=== PATIENT | female | born 1995 | race Caucasian/White ===

== ENCOUNTER 2016-08-11 15:00 | Emergency (ER) ==
[2016-08-11 15:06] VITALS: BP 122/83; TEMP 97.9; BMI 25.7
--- NOTE | 2016-08-11 15:13 | ED.PDOC ---
General ED Provider: Dr. MAJO BAUTISTA JR Chief Complaint: Urinary Problem Stated Complaint: 20yo with dysuria burning,n fever voiding often, decr amounts [ End ]2 days 97.9 99 20 98% 122/83 3/10 Time Seen by Physician: 15:13 Mode of Arrival: Walk-In Information Source: Patient Exam Limitations: No limitations Nursing and Triage Documentation Reviewed and Agree: No Review of Systems - Review Of Systems Constitutional: Reports: No symptoms Eyes: Reports: No symptoms Ears, Nose, Mouth, Throat: Reports: No symptoms Respiratory: Reports: No symptoms Cardiac: Reports: No symptoms GI: Reports: No symptoms : Reports: Burning, Dysuria, Pain Musculoskeletal: Reports: No symptoms Skin: Reports: No symptoms Neurological: Reports: No symptoms Endocrine: Reports: No symptoms Hematologic/Lymphatic: Reports: No symptoms All Other Systems: Other Past Medical History - Past Medical History Endocrine: Reports: None Cardiovascular: Reports: None Respiratory: Reports: None Hematological: Reports: None Gastrointestinal: Reports: None Genitourinary: Reports: None, Kidney stones (02/07/16 right ureteral stone(old record)) Neuro/Psych: Reports: None Musculoskeletal: Reports: None, Other (mild spina bifida per patient legs work [email or web address]) Cancer: Reports: None Last Menstrual Period: now Other Pertinent Past Medical History: strep four times a year - Surgical History General Surgical History: Reports: None - Family History Family History: Reports: None - Social History Smoking Status: Current every day smoker, Light tobacco smoker Hx Substance Use: No Alcohol Screening: None - Immunizations Tetanus Shot up to Date: Yes Physical Exam - Physical Exam Appearance: Well-appearing, Thin Ill-appearing: Mild Pain Distress: Mild Eyes: MANE, EOMI, Conjunctiva clear ENT: Ears normal (congested but mobile), Nose normal, Oropharynx normal Neck: Supple Respiratory: Airway patent, Breath sounds clear, Breath sounds equal, Respirations nonlabored Cardiovascular: RRR, Pulses normal, No rub, No murmur GI/: Soft, Nontender, No masses, Bowel sounds normal, No Organomegaly Musculoskeletal: Normal strength, ROM intact, No edema, No calf tenderness Skin: Warm, Dry, Normal color Neurological: Sensation intact, Motor intact, Reflexes intact, Cranial nerves intact, Alert, Oriented Psychiatric: Affect appropriate, Mood appropriate Critical Care Note - Critical Care Note Total Time (mins): 0 Course - Course Orders, Labs, Meds: Lab Review 08/11/16 15:15 Urine Color Yellow Urine Clarity Clear Urine pH 6.0 Ur Specific Murdock 1.025 Urine Protein Negative Urine Glucose (UA) Negative Urine Ketones Negative Urine Blood 2+ Urine Nitrite Negative Urine Bilirubin Negative Urine Urobilinogen 0.2 Ur Leukocyte Esterase Negative Urine Microscopic RBC 5-10 Ur Squamous Epith Cells 2-5 Urine Mucus 1+ Orders Category Date Time Status STREP SCREEN Stat LAB 08/11/16 15:25 Completed UA [URINALYSIS C & S IF INDICATED] Stat LAB 08/11/16 15:15 Completed Vital Signs: Temp Pulse Resp BP Pulse Ox 08/11/16 15:02 97.9 F 99 H 20 122/83 98 Departure - Departure Time of Disposition: 16:13 Disposition: HOME SELF-CARE Discharge Problem: Urinary symptoms, Hematuria, Strep pharyngitis Instructions: Hematuria (ED), Strep Throat (ED) Condition: Good Pt referred to PMD for follow-up: Yes Additional Instructions: recheck urine in two weeks increase fluids no infection seen on urinalysis with history of strep may need ENT consult [facility] may be able to give a referral to Dr Laughlin may see any ENT for evaluations may use cough medication such as Robitussin DM and throat medication such as chloraseptic spray for soreness antibiotics until gone recheck urine PMD two weeks Prescriptions: Cephalexin [Keflex] 500 mg PO QID #40 capsule Allergies/Adverse Reactions: Allergies No Known Allergies Allergy (Verified 08/11/16 15:07) Home Medications: Ambulatory Orders Cephalexin [Keflex] 500 mg PO QID #40 capsule 08/11/16
[2016-08-11 15:28] LABS: BILIRUBIN,URINE Negative (NEGATIVE); KETONES,URINE Negative (NEGATIVE); LEUKOCYTE ESTERASE ,URINE Negative (NEGATIVE); NITRITE,URINE Negative (NEGATIVE); PROTEIN,URINE Negative (NEGATIVE); URINE, BLOOD 2+ (NEGATIVE)
[2016-08-11 15:38] LABS: ADD URINE MICROSCOPIC YES
== END 2016-08-11 16:44 | disposition home or self-care (01) ==
LOC: ED 15:00
DX: J02.0 Streptococcal pharyngitis (principal); R31.9 Hematuria, unspecified; R30.0 Dysuria; F17.210 Nicotine dependence, cigarettes, uncomplicated; Z87.442 Personal history of urinary calculi
CPT/HCPCS: 81001; 87880; 99283

== ENCOUNTER 2017-05-09 18:07 | Emergency (ER) ==
[2017-05-09 18:07] VITALS: BMI 25.7
[2017-05-09 18:11] VITALS: BP 136/77; TEMP 99.1
--- NOTE | 2017-05-09 18:43 | ED.PDOC ---
General ED Provider: Dr. SONALI SMITH-ER Chief Complaint: Non-specific Complaint Stated Complaint: i want a blood test Time Seen by Physician: 18:15 Mode of Arrival: Walk-In Information Source: Patient, Family Exam Limitations: No limitations Primary Care Provider: YESSI CHING Nursing and Triage Documentation Reviewed and Agree: Yes Reviewed sepsis parameters & appropriate labs ordered?: Yes System Inflammatory Response Syndrome: Not Applicable Sepsis Protocol: For patient's 13 years and over: Temp is 96.8 and below OR 101 and greater Pulse >90 BPM Resp >20/minute Acutely Altered Mental Status Are patient's symptoms suggestive of a new infection, such as: -Pneumonia -Skin, Soft Tissue -Endocarditis -UTI -Bone, Joint Infection -Implantable Device -Acute Abdominal Infection -Wound Infection -Meningitis -Blood Stream Catheter Infection -Unknown SYRUPER Complaint Exam - Labor/Delivery Complaint/Exam Onset/Duration: unknown Symptoms Are: Resolved (no symptoms) Contractions Regular: No Location: Denies: Low Abdomen, Mid Abdomen, Pelvis, Back Character: Denies: Sharp, Constant Associated Signs and Symptoms: Denies: Vomiting, Diarrhea, Fever, Meconium, Gestational Hypertension, Gestational Diabetes, Pre-Eclampsia Vaginal Bleeding: None Patient Rh Status: Unknown Prior History: Reports: None Related Surgical History: None Differential Diagnoses: Other Review of Systems - Review Of Systems Constitutional: Reports: No symptoms Eyes: Reports: No symptoms Ears, Nose, Mouth, Throat: Reports: No symptoms Respiratory: Reports: No symptoms Cardiac: Reports: No symptoms GI: Reports: No symptoms : Reports: No symptoms Musculoskeletal: Reports: No symptoms Skin: Reports: No symptoms Neurological: Reports: No symptoms Endocrine: Reports: No symptoms Hematologic/Lymphatic: Reports: No symptoms All Other Systems: Reviewed and Negative Past Medical History - Past Medical History Previously Healthy: Yes Endocrine: Reports: None Cardiovascular: Reports: None Respiratory: Reports: None Hematological: Reports: None Gastrointestinal: Reports: None Genitourinary: Reports: None, Kidney stones (02/07/16 right ureteral stone(old record)) Neuro/Psych: Reports: None Musculoskeletal: Reports: None, Other (mild spina bifida per patient legs work [employer]) Cancer: Reports: None Last Menstrual Period: last month Other Pertinent Past Medical History: strep four times a year - Surgical History General Surgical History: Reports: None - Family History Family History: Reports: None - Social History Smoking Status: Current every day smoker, Heavy tobacco smoker Hx Substance Use: No Alcohol Screening: None Lives: With family Physical Exam - Physical Exam Appearance: Well-appearing, No pain distress, Well-nourished Eyes: MANE, EOMI, Conjunctiva clear ENT: Ears normal, Nose normal, Oropharynx normal Neck: Supple Respiratory: Airway patent, Breath sounds clear, Breath sounds equal, Respirations nonlabored Cardiovascular: RRR, Pulses normal, No rub, No murmur GI/: Soft, Nontender, No masses, Bowel sounds normal, No Organomegaly Musculoskeletal: Normal strength, ROM intact, No edema, No calf tenderness Skin: Warm Neurological: Sensation intact, Motor intact, Reflexes intact, Cranial nerves intact, Alert, Oriented Psychiatric: Affect appropriate, Mood appropriate Critical Care Note - Critical Care Note Total Time (mins): 0 Course - Course Orders, Labs, Meds: Lab Review 05/09/17 18:20 Serum , Qual Positive Orders Category Date Time Status SERUM Stat LAB 05/09/17 18:20 Completed Vital Signs: Temp Pulse Resp BP Pulse Ox 05/09/17 18:07 99.1 F 106 H 20 136/77 99 Departure - Departure Time of Disposition: 18:42 Disposition: HOME SELF-CARE Discharge Problem: Positive blood test Instructions: (ED) Condition: Good Pt referred to PMD for follow-up: Yes Additional Instructions: f/u with ob--if any pelvic pain or bleeding seek care immediately Allergies/Adverse Reactions: Allergies No Known Allergies Allergy (Verified 05/09/17 18:12) Home Medications: Ambulatory Orders 1 [No Reported Medications] 05/09/17 Disposition Discussed With: Patient, Family
== END 2017-05-09 18:46 | disposition home or self-care (01) ==
LOC: ED 18:07
DX: Z32.01 Encounter for pregnancy test, result positive (principal); F17.210 Nicotine dependence, cigarettes, uncomplicated
CPT/HCPCS: 36415; 84703; 99282

== ENCOUNTER 2017-07-24 18:09 | Emergency (ER) ==
[2017-07-24 18:14] VITALS: BP 144/81; TEMP 98.7; BMI 28.7
--- NOTE | 2017-07-24 18:26 | ED.PDOC ---
General ED Provider: Dr. 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 Has sore throat and congestion, runny nose and cough. Exposed to patients with pneumonia and concerned she could get ill. Is 16 weeks . Denies nausea or vomiting Time Seen by Physician: 18:15 Mode of Arrival: Walk-In Information Source: Patient Exam Limitations: No limitations Primary Care Provider: DANISHA ZAMORANO Nursing and Triage Documentation Reviewed and Agree: Yes Reviewed sepsis parameters & appropriate labs ordered?: Yes System Inflammatory Response Syndrome: Not Applicable Sepsis Protocol: For patient's 13 years and over: Temp is 96.8 and below OR 101 and greater Pulse >90 BPM Resp >20/minute Acutely Altered Mental Status Are patient's symptoms suggestive of a new infection, such as: -Pneumonia -Skin, Soft Tissue -Endocarditis -UTI -Bone, Joint Infection -Implantable Device -Acute Abdominal Infection -Wound Infection -Meningitis -Blood Stream Catheter Infection -Unknown System Inflammatory Response Syndrome: Not Applicable Respiratory Complaint Exam - Respiratory Complaint/Exam Onset/Duration: 1 day Symptoms Are: Still present Timing: Constant Initial Severity: Mild Current Severity: Mild Location: Nose, Throat Character: Reports: Non-productive cough Aggravating: Reports: None Alleviating: Reports: None Associated Signs and Symptoms: Reports: Sore throat, Decreased oral intake. Denies: Rapid breathing, Dyspnea, Fever, Chills, Chest pain, Pleuritic chest pain, Wheezing, Dizziness, Calf swelling, Edema, Sinus discomfort, Increased appetite, Increased urination Related History: Denies: Similar episode History of Healthcare-Acquired Pneumonia: No Related Surgical History: Reports: None Pulmonary Embolism Risk Factors: None Cardiac Risk Factors: Reports: None Pseudomonas Risk Factors: Reports: None Tuberculosis Risk Factors: Reports: None Status Asthmaticus Risk Factors: Reports: None Home Oxygen Use: No Home Peak Flow: Recent personal best Recent Stress Test: No Recent Echo/LV Function: No Current Antibiotic Use: No Current Asthma Medication Use: No Respiratory Distress: None Inadequate Respiratory Effort: No Dysphagia Present: No Stridor Present: No JVD Present: No Accessory Muscle Use: No Retractions: Not Present Diminished Breath Sounds: No Prolonged Respiration: Inspiratory phase Sinus Tenderness: None Grunting Respirations: No Kussmaul Respirations: No Differential Diagnoses: URI, Other (pharyngitis, otitis) Review of Systems - Review Of Systems Constitutional: Reports: No symptoms Eyes: Reports: No symptoms Ears, Nose, Mouth, Throat: Reports: No symptoms, Throat pain Respiratory: Reports: No symptoms Cardiac: Reports: No symptoms GI: Reports: No symptoms : Reports: No symptoms Musculoskeletal: Reports: No symptoms Skin: Reports: No symptoms Neurological: Reports: No symptoms Endocrine: Reports: No symptoms Hematologic/Lymphatic: Reports: No symptoms All Other Systems: Reviewed and Negative Past Medical History - Past Medical History Previously Healthy: Yes Endocrine: Reports: None Cardiovascular: Reports: None Respiratory: Reports: None Hematological: Reports: None Gastrointestinal: Reports: None Genitourinary: Reports: None, Kidney stones (02/07/16 right ureteral stone(old record)) Neuro/Psych: Reports: None Musculoskeletal: Reports: None, Other (mild spina bifida per patient legs work [employer]) Cancer: Reports: None Last Menstrual Period: 03/26 Other Pertinent Past Medical History: strep four times a year - Surgical History General Surgical History: Reports: None - Family History Family History: Reports: None - Social History Smoking Status: Current some day smoker Hx Substance Use: No Alcohol Screening: None - Immunizations Tetanus Shot up to Date: Yes Physical Exam - Physical Exam Appearance: Well-appearing, No pain distress, Well-nourished Eyes: MANE, EOMI, Conjunctiva clear ENT: Ears normal, Nose normal, Oropharynx normal, Erythema (pharynx, rt tm) Neck: Supple Respiratory: Airway patent, Breath sounds clear, Breath sounds equal, Respirations nonlabored Cardiovascular: RRR, Pulses normal, No rub, No murmur GI/: Soft, Nontender, No masses, Bowel sounds normal, No Organomegaly Musculoskeletal: Normal strength, ROM intact, No edema, No calf tenderness Skin: Warm, Dry, Normal color Neurological: Sensation intact, Motor intact, Reflexes intact, Cranial nerves intact, Alert, Oriented Psychiatric: Affect appropriate, Mood appropriate Critical Care Note - Critical Care Note Total Time (mins): 0 Course - Course Orders, Labs, Meds: Lab Review 07/24/17 18:23 Influ A Molecular Assay Negative by naat Influ B Molecular Assay Negative by naat Orders Category Date Time Status FLU A & B MOLECULAR [FLU A/B MOLECULAR] Stat LAB 07/24/17 18:23 Completed RAPID STREP SCREEN [MOLECULAR GROUP A STREP] Stat LAB 07/24/17 18:23 Completed Vital Signs: Temp Pulse Resp BP Pulse Ox 07/24/17 18:10 98.7 F 107 H 16 144/81 H 99 Departure - Departure Time of Disposition: 18:50 Disposition: HOME SELF-CARE Discharge Problem: Otitis Pharyngitis Qualifiers: Pharyngitis/tonsillitis etiology: other specified organisms Qualified Code(s): J02.8 - Acute pharyngitis due to other specified organisms Instructions: Pharyngitis (ED), Ear Infection (ED) Condition: Good Pt referred to PMD for follow-up: Yes IPMP verified?: No Prescriptions: Amoxicillin 875 mg PO BID #20 tablet Allergies/Adverse Reactions: Allergies No Known Allergies Allergy (Verified 07/24/17 18:17) Home Medications: Ambulatory Orders Amoxicillin 875 mg PO BID #20 tablet 07/24/17 Vit,Calc76/Iron/Folic [Prenatabs Rx Tablet] 1 tab PO DAILY 07/24/17 Disposition Discussed With: Patient, Family
== END 2017-07-24 19:03 | disposition home or self-care (01) ==
LOC: ED 18:09
DX: J02.9 Acute pharyngitis, unspecified (principal); H66.90 Otitis media, unspecified, unspecified ear; R05 Cough; Z33.1 Pregnant state, incidental; F17.210 Nicotine dependence, cigarettes, uncomplicated
CPT/HCPCS: 87502; 87651; 99282